=== PATIENT | male | born 1980 | race Caucasian/White ===

== ENCOUNTER 2017-08-08 23:25 | Emergency (ER) | payer SELFPAY ==
[2017-08-08 23:25] VITALS: BMI 28.1
--- NOTE | 2017-08-09 01:24 | C.PDOC ---
History Of Present Illness 37 y/o M c no PMHx p/w chest pain x 12 hours. Pain is L sided chest, began at rest, sharp, associated with burping, L arm pain, dizziness, nausea. He notes palpitations yesterday which began while practicing a dance routine. Denies fever, leg swelling, recent travel or surgery, previous DVT/PE, hormone use. Time Seen by Provider: 08/09/17 00:37 Chief Complaint (Nursing): Chest Pain Past Medical History Vital Signs: Last Vital Signs Temp 98 F 08/09/17 00:19 Pulse 90 08/09/17 00:19 Resp 12 08/09/17 00:41 BP 145/94 H 08/09/17 00:19 Pulse Ox 97 08/09/17 01:24 - Medical History PMH: Denies: Depression, Diabetes, Hepatitis, HIV, HTN, Seizures, Sexually Transmitted Disease - [facility] Procedures INJECT/INFUSE ELECTROLYT (01/21/14) INJECT/INFUSE NEC (01/21/14) Family History: States: Unknown Family Hx - Social History Hx Tobacco Use: No Hx Alcohol Use: No Hx Substance Use: No - Immunization History Hx Influenza Vaccination: No Review Of Systems Except As Marked, All Systems Reviewed And Found Negative. Constitutional: Negative for: Fever Gastrointestinal: Negative for: Vomiting Physical Exam - Physical Exam Additional Physical Exam Comments: Constitutional: No acute distress. Head: Normocephalic. Atraumatic. Eyes: PERRL. EOMI. ENT: Moist mucous membranes. Neck: Supple. Cardiovascular: Regular rate. Radial pulses 2+ bilaterally. Chest: Reproducible chest tenderness. Respiratory: Clear to auscultation bilaterally. GI: Soft. Nontender. Nondistended. Back: No CVA tenderness. Musculoskeletal: No tenderness or swelling of extremities. Skin: No rash. Neurologic: Alert, no focal deficit. ED Course And Treatment - Laboratory Results Result Diagrams: 08/09/17 01:26 08/09/17 01:26 O2 Sat by Pulse Oximetry: 97 Medical Decision Making Medical Decision Making: PERC negative. EKG shows NSR 90 bpm, no ST/T wave changes. Will obtain CXR, check labs. Discussed serial enzymes with patient and inability to diagnose IA with 1 set, he preferred to have 1 set performed and would rather follow up with PMD. CXR no acute disease. Labs unremarkable. Disposition - Disposition Disposition: HOME/ ROUTINE Disposition Time: 01:58 Condition: STABLE Instructions: Chest Pain (ED) Forms: [employer] [facility] (Grenadian) - POA Core Measure Indicators: Chest Pain - Clinical Impression Clinical Impression: Chest pain
[2017-08-09 01:30] LABS: BASO % 0.4 % (0.0-2.0); EOS # 0.1 K/uL (0.0-0.7); EOS % 0.9 % (0.0-4.0); HEMATOCRIT 43.1 % (35.0-51.0); LYMPH # 3.1 K/uL (1.0-4.3); LYMPH % 35.3 % (20.0-40.0); MEAN CELL VOLUME 94.2 fL (80.0-94.0); MEAN CORPUSCULAR HEMOGLOBIN 32.3 pg (27.0-31.0); MEAN CORPUSCULAR HGB CONC 34.3 g/dL (33.0-37.0); MEAN PLATELET VOLUME 7.6 fL (7.2-11.7); MONO # 0.6 K/uL (0.0-0.8); MONO % 7.3 % (0.0-10.0); WHITE BLOOD COUNT 8.8 K/uL (4.8-10.8)
[2017-08-09 01:39] LABS: CHLORIDE 102 mmol/L (98-107)
[2017-08-09 01:40] LABS: POTASSIUM 3.7 mmol/L (3.6-5.2); SODIUM 137 mmol/L (132-148)
[2017-08-09 01:42] LABS: BILIRUBIN,TOTAL 0.5 mg/dL (0.2-1.3); GFR AFRICAN-AMERICAN > 60
[2017-08-09 01:43] LABS: ALB/GLOB RATIO 1.4 (1.0-2.1); ALKALINE PHOSPHATASE 78 U/L (38-126); ALT/SGPT 28 U/L (21-72); AST/SGOT 23 U/L (17-59); BLOOD UREA NITROGEN 18 mg/dL (9-20); CALCIUM 8.9 mg/dl (8.6-10.4); CARBON DIOXIDE 25 mmol/L (22-30); GLUCOSE,RANDOM 101 mg/dL (75-110); TOTAL PROTEIN 7.3 g/dL (6.3-8.3)
[2017-08-09 02:10] VITALS: BP 117/74; PULSE 86; RESP 21; TEMP 97.7; O2SAT 99
--- NOTE | 2017-08-09 11:38 | RAD ---
HISTORY: chest pain COMPARISON: Comparison is made to 05/11/2015 TECHNIQUE: Chest PA and lateral FINDINGS: LUNGS: No active pulmonary disease. PLEURA: No significant pleural effusion identified. No pneumothorax apparent. CARDIOVASCULAR: Normal. OSSEOUS STRUCTURES: No significant abnormalities. VISUALIZED UPPER ABDOMEN: Normal. OTHER FINDINGS: None. IMPRESSION: No active disease.
== END 2017-08-09 02:10 | disposition home or self-care (01) ==
LOC: C.ER 23:25
DX: R07.9 Chest pain, unspecified (principal)

== ENCOUNTER 2018-01-22 22:47 | Emergency (ER) | payer OTHER ==
[2018-01-22 22:48] VITALS: BMI 28.1
--- NOTE | 2018-01-22 23:13 | C.PDOC ---
Chief Complaint (Nursing): Chest Pain Past Medical History Vital Signs: Last Vital Signs Temp 98.2 F 01/22/18 22:54 Pulse 81 01/22/18 22:54 Resp 16 01/22/18 22:54 BP 130/91 H 01/22/18 22:54 Pulse Ox 98 01/22/18 22:54 - Medical History PMH: Denies: Depression, Diabetes, Hepatitis, HIV, HTN, Seizures, Sexually Transmitted Disease - [facility] Procedures INJECT/INFUSE ELECTROLYT (01/21/14) INJECT/INFUSE NEC (01/21/14) Family History: States: Unknown Family Hx - Social History Hx Tobacco Use: No Hx Alcohol Use: Yes Hx Substance Use: No - Immunization History Hx Influenza Vaccination: No ED Course And Treatment O2 Sat by Pulse Oximetry: 98 Disposition - Disposition
--- NOTE | 2018-01-22 23:21 | C.PDOC ---
History Of Present Illness 37yo male, with no known past medical history, presents to ED with complaints of chest pain and lightheadedness 2 hours prior to arrival. Patient describes the pain as chest tightness and states he was driving home from dancing lessons during onset of symptoms. He also states his left hand and bilateral feet felt cold. Patient is currently asymptomatic and denies any shortness of breath. No other complaints. Time Seen by Provider: 01/22/18 23:00 Chief Complaint (Nursing): Chest Pain History Per: Patient History/Exam Limitations: no limitations Onset/Duration Of Symptoms: Hrs (2) Current Symptoms Are (Timing): Gone Quality: Tightness Past Medical History Reviewed: Historical Data, Nursing Documentation, Vital Signs Vital Signs: Last Vital Signs Temp 97.5 F L 01/23/18 01:16 Pulse 78 01/23/18 01:16 Resp 14 01/23/18 01:16 BP 130/80 01/23/18 01:16 Pulse Ox 97 01/23/18 01:16 - Medical History PMH: No Chronic Diseases Denies: Depression, Diabetes, Hepatitis, HIV, HTN, Seizures, Sexually Transmitted Disease Surgical History: No Surg Hx - [facility] Procedures INJECT/INFUSE ELECTROLYT (01/21/14) INJECT/INFUSE NEC (01/21/14) Family History: States: Unknown Family Hx - Social History Hx Tobacco Use: No Hx Alcohol Use: Yes Hx Substance Use: No - Immunization History Hx Influenza Vaccination: No Review Of Systems Except As Marked, All Systems Reviewed And Found Negative. Cardiovascular: Positive for: Chest Pain (tightness, now resolved), Light Headedness (now resolved) Respiratory: Negative for: Shortness of Breath Musculoskeletal: Positive for: Other (cold sesnation to left hand and bilateral feet, now resolved) Physical Exam - Physical Exam Appears: Non-toxic, No Acute Distress Skin: Normal Color, Warm, Dry Head: Atraumatic, Normacephalic Eye(s): bilateral: Normal Inspection, PERRL, EOMI Oral Mucosa: Moist Throat: Normal Neck: Normal ROM, Supple Chest: Symmetrical, No Tenderness, Other (reproducible pain with twisting of trunk) Cardiovascular: Rhythm Regular Respiratory: Normal Breath Sounds Gastrointestinal/Abdominal: Soft, No Tenderness Extremity: Normal ROM, No Deformity Pulses: Left Dorsalis Pedis: Normal, Right Dorsalis Pedis: Normal Neurological/Psych: Oriented x3, Normal Speech, Normal Cognition ED Course And Treatment - Laboratory Results Result Diagrams: 01/22/18 23:25 01/22/18 23:25 ECG: Interpreted By Me, Viewed By Me ECG Rhythm: Sinus Rhythm Interpretation Of ECG: Normal intervals, normal ST segments, no ectopy Rate From EC O2 Sat by Pulse Oximetry: 98 (RA) Pulse Ox Interpretation: Normal - Radiology CXR: Interpreted by Me, Viewed By Me CXR Interpretation: Yes: No Acute Disease, Heart Size (normal) Medical Decision Making Medical Decision Making: Impression: Musculoskeletal chest pain Plan: -- Labs -- CXR -- Toradol 30mg IVP Time: 005 Labs reviewed and within normal limits. CXR with no acute findings. Patient improved with IV Toradol, stable for discharge home. Disposition - Disposition Disposition: HOME/ ROUTINE Disposition Time: 00:53 Condition: FAIR Prescriptions: Naproxen [Naprosyn] 500 mg PO BID #20 tablet Instructions: Chest Pain That Is Not Caused by the Heart (DC) Forms: [employer] (Bhutanese) - Clinical Impression Clinical Impression: Chest wall pain - Scribe Statement The provider has reviewed the documentation as recorded by the Scribe (Dunia Puentes) Provider Attestation: All medical record entries made by the Scribe were at my direction and personally dictated by me. I have reviewed the chart and agree that the record accurately reflects my personal performance of the history, physical exam, medical decision making, and the department course for this patient. I have also personally directed, reviewed, and agree with the discharge instructions and disposition.
[2018-01-22 23:29] LABS: BASO # 0.1 K/uL (0.0-0.2); BASO % 0.5 % (0.0-2.0); EOS % 0.4 % (0.0-4.0); HEMOGLOBIN 15.2 g/dL (12.0-18.0); LYMPH # 2.7 K/uL (1.0-4.3); LYMPH % 24.8 % (20.0-40.0); MEAN CELL VOLUME 94.8 fL (80.0-94.0); MEAN CORPUSCULAR HEMOGLOBIN 32.3 pg (27.0-31.0); MEAN CORPUSCULAR HGB CONC 34.1 g/dL (33.0-37.0); MEAN PLATELET VOLUME 7.4 fL (7.2-11.7); MONO # 0.7 K/uL (0.0-0.8); MONO % 6.8 % (0.0-10.0); NEUT # 7.4 K/uL (1.8-7.0); NEUT % 67.5 % (50.0-75.0); RBC 4.71 Mil/uL (4.40-5.90); WHITE BLOOD COUNT 10.9 K/uL (4.8-10.8)
[2018-01-22 23:41] LABS: ALB/GLOB RATIO 1.3 (1.0-2.1); ALBUMIN 4.2 g/dL (3.5-5.0); ALT/SGPT 26 U/L (21-72); AST/SGOT 29 U/L (17-59); BLOOD UREA NITROGEN 10 mg/dL (9-20); CALCIUM 8.7 mg/dl (8.6-10.4); GFR AFRICAN-AMERICAN > 60; GFR NON-AFRICAN AMERICAN > 60
[2018-01-23 01:17] VITALS: BP 130/80; PULSE 78; RESP 14; TEMP 97.5
[2018-01-23 01:32] VITALS: O2SAT 98
--- NOTE | 2018-01-23 08:23 | RAD ---
PROCEDURE: CHEST RADIOGRAPH, 1 VIEW HISTORY: chest pain COMPARISON: 08/09/2017. FINDINGS: LUNGS: The lungs are clear. PLEURA: No pneumothorax or pleural fluid seen. CARDIOVASCULAR: Normal. OSSEOUS STRUCTURES: No significant abnormalities. VISUALIZED UPPER ABDOMEN: Normal. OTHER FINDINGS: None. IMPRESSION: No active pulmonary disease.
--- NOTE | 2018-01-23 10:08 | CARD ---
APPROVED REPORT EKG Measurement Heart [id number] <Conclusion> Normal sinus rhythm Normal ECG
== END 2018-01-23 01:17 | disposition home or self-care (01) ==
LOC: C.ER 22:47
DX: R07.89 Other chest pain (principal)
CPT/HCPCS: 71045; 80053; 84484; 85025; 85378; 93005; 96374; 99284; J1885

== ENCOUNTER 2018-08-14 20:55 | Emergency (ER) | payer OTHER ==
[2018-08-14 20:55] VITALS: BMI 28.1
[2018-08-14 21:13] VITALS: O2SAT 99
[2018-08-14 21:55] LABS: BASO % 0.4 % (0.0-2.0); EOS # 0.1 K/uL (0.0-0.7); EOS % 1.2 % (0.0-4.0); LYMPH # 3.1 K/uL (1.0-4.3); MEAN CORPUSCULAR HEMOGLOBIN 32.7 pg (27.0-31.0); MEAN CORPUSCULAR HGB CONC 34.5 g/dL (33.0-37.0); MEAN PLATELET VOLUME 7.4 fL (7.2-11.7); MONO # 0.6 K/uL (0.0-0.8); MONO % 5.8 % (0.0-10.0); NEUT # 5.9 K/uL (1.8-7.0); NEUT % 60.6 % (50.0-75.0); RBC 4.88 Mil/uL (4.40-5.90); RED CELL DISTRIBUTION WIDTH 12.7 % (11.5-14.5); WHITE BLOOD COUNT 9.8 K/uL (4.8-10.8)
[2018-08-14 22:00] LABS: SQUAMOUS EPITHIAL < 1 /hpf (0-5); URINE BILIRUBIN NEGATIVE (NEGATIVE); URINE BLOOD NEGATIVE (NEGATIVE); URINE CLARITY Clear (Clear); URINE COLOR Straw (YELLOW); URINE GLUCOSE (UA) NORMAL (Normal); URINE LEUKOCYTE ESTERASE NEG Leu/uL (Negative); URINE PROTEIN NEGATIVE (NEGATIVE); URINE UROBILINOGEN NORMAL mg/dL (0.2-1.0)
[2018-08-14 22:12] LABS: ALB/GLOB RATIO 1.5 (1.0-2.1); ALBUMIN 4.5 g/dL (3.5-5.0); ALT/SGPT 22 U/L (21-72); AST/SGOT 23 U/L (17-59); BLOOD UREA NITROGEN 15 mg/dL (9-20); CALCIUM 9.4 mg/dl (8.6-10.4); GFR NON-AFRICAN AMERICAN > 60; LIPASE 73 U/L (23-300)
--- NOTE | 2018-08-14 22:42 | C.PDOC ---
History Of Present Illness 38 year old male presents to the ED with 2 day history of left upper back pain associated with chills and cough with green phlegm. Denies any nausea, vomiting, chest pain, abdominal pain, SOB, urinary symptoms, or fever. Time Seen by Provider: 08/14/18 21:31 Chief Complaint (Nursing): Abdominal Pain History Per: Patient History/Exam Limitations: no limitations Onset/Duration Of Symptoms: Days Current Symptoms Are (Timing): Still Present Severity: Moderate Pain Scale Rating Of: 4 Location Of Pain/Discomfort: Other (left upper back pain) Radiation Of Pain To:: None Quality Of Discomfort: Unable To Describe Associated Symptoms: Chills, Back Pain, Other (Cough with green sputum). denies: Fever, Nausea, Vomiting, Chest Pain, Urinary Symptoms Exacerbating Factors: None Alleviating Factors: None Recent travel outside of the [place]: No Past Medical History Reviewed: Historical Data, Nursing Documentation, Vital Signs Vital Signs: Last Vital Signs Temp 98.6 F 08/14/18 21:09 Pulse 78 08/14/18 21:09 Resp 14 08/14/18 21:09 BP 124/78 08/14/18 21:09 Pulse Ox 99 08/14/18 21:09 - Medical History PMH: Denies: Depression, Diabetes, Hepatitis, HIV, HTN, Seizures, Sexually Transmitted Disease - [facility] Procedures INJECT/INFUSE ELECTROLYT (01/21/14) INJECT/INFUSE NEC (01/21/14) Family History: States: Unknown Family Hx - Social History Hx Tobacco Use: No Hx Alcohol Use: Yes Hx Substance Use: No - Immunization History Hx Influenza Vaccination: No Review Of Systems Constitutional: Positive for: Chills. Negative for: Fever Cardiovascular: Negative for: Chest Pain Respiratory: Positive for: Cough (with green phlegm). Negative for: Shortness of Breath Gastrointestinal: Negative for: Nausea, Vomiting, Abdominal Pain, Diarrhea Musculoskeletal: Positive for: Back Pain (left upper) Neurological: Negative for: Weakness, Numbness Physical Exam - Physical Exam Appears: Non-toxic Skin: Warm, Dry Head: Atraumatic, Normacephalic Eye(s): bilateral: Normal Inspection Ear(s): Bilateral: Normal Oral Mucosa: Moist Throat: Normal, No Erythema, No Exudate Neck: Normal, Supple Chest: Symmetrical, No Tenderness Cardiovascular: Rhythm Regular Respiratory: Normal Breath Sounds, No Rales, No Rhonchi, No Wheezing Gastrointestinal/Abdominal: Soft, No Tenderness Back: Other (Point tenderness to the left Parathoracic t9, t10 region) Extremity: Normal ROM (x4), No Tenderness Neurological/Psych: Oriented x3, Normal Speech Gait: Steady ED Course And Treatment - Laboratory Results Result Diagrams: 08/14/18 21:52 08/14/18 21:52 O2 Sat by Pulse Oximetry: 99 (RA) Pulse Ox Interpretation: Normal - Radiology CXR: Interpreted by Me, Viewed By Me CXR Interpretation: Yes: No Acute Disease. No: Infiltrates Medical Decision Making Medical Decision Making: Assessment: 38 year old male complains of left upper back pain and coughing up green phlegm. Plan: -CMP -Lipase -CBC -CXR -Famotidine 20 mg -Ketorolac 30 mg -Azithromycin 500 mg -Urinalysis Differential diagnoses: On reassessment, patient is resting comfortably, and is in no acute distress. The labs and CXR came back normal. Patient discharged on medication and was instructed to follow up with primary care doctor in 1-2 days for further evaluation. Disposition Counseled Patient/Family Regarding: Studies Performed, Diagnosis, Need For Followup, Rx Given - Disposition Referrals: John Abbott MD [Staff Provider] - Disposition: HOME/ ROUTINE Disposition Time: 23:00 Condition: STABLE Additional Instructions: follow up with your doctor within 2 days call to make an appointment take medication as prescribed return to ER if symptoms worsens or progress Prescriptions: Azithromycin [Zithromax] 250 mg PO DAILY #4 tab Benzonatate [Tessalon Perles] 100 mg PO BID PRN #14 tab PRN Reason: Cough And Congestion Naproxen [Naprosyn] 500 mg PO BID PRN #16 tab PRN Reason: Pain, Moderate (4-7) Instructions: Upper Back Pain (DC), Cough, Adult (DC) Forms: General Discharge Instructions, [facility] (Romanian), Work Excuse - Clinical Impression Clinical Impression: Cough, Back pain - Scribe Statement The provider has reviewed the documentation as recorded by the Scribe (Shae pickett) All medical record entries made by the Scribe were at my direction and personally dictated by me. I have reviewed the chart and agree that the record accurately reflects my personal performance of the history, physical exam, medical decision making, and the department course for this patient. I have also personally directed, reviewed, and agree with the discharge instructions and disposition.
[2018-08-14 22:58] VITALS: BP 130/70; PULSE 89; RESP 20; TEMP 97.8
--- NOTE | 2018-08-15 08:42 | RAD ---
HISTORY: abd pain COMPARISON: Chest x-ray performed 01/23/18 TECHNIQUE: Chest PA and lateral FINDINGS: LUNGS: No focal consolidation. Please note that chest x-ray has limited sensitivity for the detection of pulmonary masses. PLEURA: No significant pleural effusion identified. No definite pneumothorax . CARDIOVASCULAR: Heart size appears top normal. OSSEOUS STRUCTURES: Degenerative changes of the spine. VISUALIZED UPPER ABDOMEN: Unremarkable. OTHER FINDINGS: None. IMPRESSION: No focal consolidation, significant pleural effusion, or definite pneumothorax identified.
== END 2018-08-14 22:58 | disposition home or self-care (01) ==
LOC: C.ER 20:55
DX: M54.6 Pain in thoracic spine (principal); R05 Cough
CPT/HCPCS: 71046; 80053; 81001; 83690; 85025; 96374; 96375; 99284; J1885

== ENCOUNTER 2019-03-22 22:29 | Emergency (ER) | payer OTHER ==
[2019-03-22 22:30] VITALS: BMI 28.1
[2019-03-22 22:43] VITALS: O2SAT 97
--- NOTE | 2019-03-23 00:13 | C.PDOC ---
History Of Present Illness 39 year old male presents with URI and sore throat for 1 day associated with some chills. Patient reports he currently has a stuffy nose. He has been taking dayquil with no relief. Denies any PMHx. Time Seen by Provider: 03/22/19 22:49 Chief Complaint (Nursing): Flu-like Symptoms History Per: Patient History/Exam Limitations: no limitations Onset/Duration Of Symptoms: Days (1) Current Symptoms Are (Timing): Still Present Location Of Pain: Throat Sick Contacts (Context): None Associated Symptoms: Sore Throat, Nasal Congestion Recent travel outside of the [place]: No Past Medical History Reviewed: Historical Data, Nursing Documentation, Vital Signs Vital Signs: Last Vital Signs Temp 99 F 03/22/19 22:40 Pulse 97 H 03/22/19 22:40 Resp 20 03/22/19 22:40 BP 130/87 03/22/19 22:40 Pulse Ox 97 03/22/19 22:40 Primary Care Provider: John Abbott - Medical History PMH: Denies: Depression, Diabetes, Hepatitis, HIV, HTN, Seizures, Sexually Transmitted Disease - [facility] Procedures INJECT/INFUSE ELECTROLYT (01/21/14) INJECT/INFUSE NEC (01/21/14) Family History: States: Unknown Family Hx - Social History Hx Tobacco Use: No Hx Alcohol Use: Yes Hx Substance Use: No - Immunization History Hx Tetanus Toxoid Vaccination: Yes Hx Influenza Vaccination: Yes Hx Pneumococcal Vaccination: Yes Review Of Systems Constitutional: Positive for: Chills. Negative for: Fever ENT: Positive for: Nose Congestion, Throat Pain Respiratory: Positive for: Cough. Negative for: Shortness of Breath Skin: Negative for: Rash Physical Exam - Physical Exam Appears: Well, Non-toxic, No Acute Distress Skin: Normal Color, Warm Head: Atraumatic, Normacephalic Eye(s): bilateral: Normal Inspection Ear(s): Bilateral: Normal Nose: Discharge Oral Mucosa: Moist Throat: Other (Enlarged swollen tonsils, no exudates. No muffled voice. Able to swallow secretions. Airway patent.) Neck: Normal ROM, Supple Respiratory: Normal Breath Sounds, No Accessory Muscle Use, Other (Normal inspiratory effort) Neurological/Psych: Oriented x3, Normal Speech ED Course And Treatment O2 Sat by Pulse Oximetry: 97 (Room air) Pulse Ox Interpretation: Normal Medical Decision Making Medical Decision Making: Strep was negative, will treat for tonsillitis. 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 - Scribe Statement The provider has reviewed the documentation as recorded by the Scribharjinder Barton All medical record entries made by the Kirstinibharjinder were at my direction and personally dictated by me. I have reviewed the chart and agree that the record accurately reflects my personal performance of the history, physical exam, medical decision making, and the department course for this patient. I have also personally directed, reviewed, and agree with the discharge instructions and disposition.
[2019-03-23 01:00] VITALS: BP 120/77; PULSE 88; RESP 16; TEMP 98.8
== END 2019-03-23 01:00 | disposition home or self-care (01) ==
LOC: C.ER 22:29
DX: J03.90 Acute tonsillitis, unspecified (principal)